=== PATIENT | female | born 1990 | race Caucasian/White ===

== ENCOUNTER 2019-06-07 01:09 | Emergency (ER) | payer OTHER ==
[~2019-06-07] VITALS: Ht 162.6 cm; Wt 56.6 kg
[2019-06-07 01:11] VITALS: BP 131/88
[2019-06-07] MEDS ORDERED: CLON0.5T20 PO (01:28)
[2019-06-07] MEDS ORDERED: FLUO10CA13 PO (01:29)
--- NOTE | 2019-06-07 01:32 | NUR ---
THIS IS A 28 YO FEMALE COMING IN FOR THREE SWOLLEN LYMPH NODES POSTERIOR OF RIGHT EAR. STATES 8/10 HEAD AND EYE PAIN RADIATING TO RIGHT SHOULDER AND RINGING IN RIGHT EAR. PATIENT HAS HX OF PTSD AND ANXIETY. MD IN ROOM. PATIENT HAS CATS AT HOME THAT SLEEP IN THEIR BED AND ARE CLAWED. MD DISCUSSING CAT SCRATCH DISEASE. VSS, NAD, CALL LIGHT IN REACH, DENIES NEEDS AT THIS TIME.
[2019-06-07] MEDS ORDERED: KETOROLAC 30 MG/1 ML ONE (01:38)
[2019-06-07] MEDS ORDERED: HYDROcodone/APAP 5/325 TABLET ONE (01:39)
[2019-06-07] MEDS ORDERED: KETOROLAC 30 MG/1 ML IM ONE (02:00)
[2019-06-07] MEDS ORDERED: HYDROcodone/APAP 5/325 TABLET PO ONE (02:00)
== END 2019-06-07 01:57 | disposition home or self-care (01) ==
LOC: ED 01:39
DX: L04.0 Acute lymphadenitis of face, head and neck (principal)
CPT/HCPCS: 96372; 99283; J1885

== ENCOUNTER 2019-06-21 14:43 | Emergency (ER) | payer OTHER ==
[~2019-06-21] VITALS: Ht 162.6 cm; Wt 57.0 kg
[~2019-06-21 14:43] MED LIST: CLON0.5T20 PO; FLUO10CA13 PO
[2019-06-21 14:47] VITALS: BP 118/82
[2019-06-21] MEDS ORDERED: KETOROLAC 30 MG/1 ML IM ONE (15:00)
[2019-06-21] MEDS ORDERED: KETOROLAC 60 MG/2 ML ONE (15:04)
--- NOTE | 2019-06-21 15:22 | NUR ---
PT MEDICATED PER AUG. PT STATES SHE IS IN 10/10 PAIN IN HER MID THORACIC AREA AND HAS N/T IN BUE AND BLE AND LAST WEEK HAD A FALL AND HIT HER BACK. MD NOTIFIED. ADDITIONAL IMAGING ORDERED.
== END 2019-06-21 16:01 | disposition home or self-care (01) ==
LOC: ED 15:21
DX: J20.9 Acute bronchitis, unspecified (principal); M79.18 Myalgia, other site
CPT/HCPCS: 71045; 72040; 72072; 96372; 99283; J1885